=== PATIENT | female | born 1990 | race Caucasian/White ===

== ENCOUNTER 2020-04-18 20:53 | Inpatient (IN) ==
[2020-04-18] MEDS ORDERED: LACTATED RINGERS 1,000 ML IV ONE (21:17)
[2020-04-18] MEDS ORDERED: ONDANSETRON 4 MG/2 ML VIAL IV PRN (21:17)
[2020-04-18] MEDS ORDERED: LACTATED RINGERS 1,000 ML IV SCH (21:30)
[2020-04-18 21:41] LABS: Basophils % 0.2 % (0.0-0.8); Eosinophils # 0.1 10*3/uL (0.0-0.87); Hematocrit 36.3 VOL% (35.7-47.0); Hemoglobin 12.1 GM/DL (12.0-16.0); Immature Granulocytes % 0.6 %; Immature Granulocytes Absolute 0.07 #; Lymphocytes % 27.9 % (21.3-54.2); Mean Corpuscular HGB Conc 33.3 GM/DL (32-36); Mean Corpuscular Volume 99.5 FL (87-102); Mean Platelet Volume 13.3 FL (9.6-12.0); Neutrophils % 63.3 % (38.7-73.9); Platelet Count 181 T/CUMM (130-400); Red Blood Count 3.65 MC/CUMM (3.8-5.5); Red Cell Distribution Width 13.3 % (9.3-17.3); White Blood Count 10.8 T/CUMM (4-12)
[2020-04-18 21:58] LABS: Alanine Aminotransferase 24 U/L (13-56); Albumin 2.6 G/DL (3.4-5.0); Alkaline Phosphatase 119 U/L (45-117); Aspartate Amino Transferase 18 U/L (0-37); Bilirubin,Total < 0.39 MG/DL (0.2-1.0); Blood Urea Nitrogen 8 MG/DL (7-18); Calcium 9.2 MG/DL (8.5-10.1); Estimated Glom Filtration Rate 120 ML/MIN; Glucose 90 MG/DL (74-106); Osmolality,Calculated 270.8 MOS/KG (273-304); Total Protein 6.7 G/DL (6.4-8.3)
[2020-04-18 22:00] LABS: Eosinophils 2 % (0-10); Lymphocytes 22 % (20-55); Platelet Estimate Adequate; Segmented Neutrophils 67 % (50-85); Total Cells Counted 100
[2020-04-19] MEDS ORDERED: ceFAZolin 2,000 MG in PREMIX 1 EACH IV ONE (00:30)
[2020-04-19] MEDS ORDERED: BUTORPHANOL 1 MG/ML VIAL IV PRN (12:34)
[2020-04-19] MEDS ORDERED: BUTORPHANOL 2 MG/ML VIAL IV PRN (12:34)
[2020-04-19] MEDS ORDERED: LACTATED RINGERS 1,000 ML IV ONE (14:13)
[2020-04-19] MEDS ORDERED: ePHEDrine 50 MG/ML VIAL IV PRN (14:13)
[2020-04-19] MEDS ORDERED: ONDANSETRON 4 MG/2 ML VIAL IV ONE (14:13)
[2020-04-19] MEDS ORDERED: FAMOTIDINE 20 MG/2 ML VIAL IV ONE (14:13)
[2020-04-19] MEDS ORDERED: NALOXONE 0.4 MG/ML VIAL IV PRN (14:13)
[2020-04-19] MEDS ORDERED: CITRIC ACID/SODIUM CITRATE 30 ML UDCUP PO ONE (14:13)
[2020-04-19] MEDS ORDERED: diphenhydrAMINE 50 MG/1 ML VIAL IV PRN ×2 (14:13)
[2020-04-19] MEDS ORDERED: hydrOXYzine HCL 25 MG/1 ML VIAL IM PRN (14:13)
[2020-04-19] MEDS ORDERED: PROMETHAZINE 25 MG/1 ML VIAL IM ONE (14:13)
[2020-04-19] MEDS ORDERED: OXYTOCIN 20 UNIT in SODIUM CHLORIDE 0.9% 1,000 ML IV PRN (14:23)
[2020-04-19] MEDS ORDERED: fentaNYL 2 MCG/ROPIV 0.2% EPID 100 ML EPIDURAL SCH (14:30)
[2020-04-19] MEDS ORDERED: LACTATED RINGERS 1,000 ML IV SCH (14:30)
[2020-04-19] MEDS ORDERED: OXYTOCIN/LR 20 UNIT/1,000 ML BAG IV ONE ×3 (14:31→21:14)
[2020-04-19 17:38] LABS: Apearance,Urine CLEAR (Clear); Bilirubin,Urine Negative (Negative); Blood, Urine Negative (Negative); Glucose,Urine (UA) >=500 mg/dL (Negative); Hyaline Casts,Urine 1 /LPF (0-3); Ketones,Urine 5 mg/dL (Negative); Nitrite,Urine Negative (Negative); Protein,Urine Negative; RBC,Urine <1 /HPF (0-4); Urine Color Yellow (Yellow); Urine Specific Gravity 1.011 (1.001-1.035); Urine Urobilinogen < 2.0 EU/DL (0.2-1.0); WBC,Urine 1 /HPF (0-6)
[2020-04-19] MEDS ORDERED: SODIUM CHLORIDE 0.9% 0 ML IV ONE (17:38)
[2020-04-19] MEDS ORDERED: miSOPROStoL 200 MCG TABLET ONE (17:38)
[2020-04-19] MEDS ORDERED: TRANEXAMIC ACID 1,000 MG/10 ML VIAL ONE (17:38)
[2020-04-19] MEDS ORDERED: LIDOCAINE 1% 50 ML VIAL ONE (17:38)
[2020-04-19] MEDS ORDERED: CARBOPROST TROMETHAMINE 250 MCG/ML AMP IM ONE (17:39)
[2020-04-19] MEDS ORDERED: TERBUTALINE 1 MG/1 ML VIAL SUBCUT ONE (20:00)
[2020-04-19] MEDS ORDERED: TERBUTALINE 1 MG/1 ML VIAL ONE (20:03)
[2020-04-19] MEDS ORDERED: LIDOCAINE MPF 2% /EPI 20 ML VIAL ONE (20:16)
[2020-04-19] MEDS ORDERED: miSOPROStoL 200 MCG TABLET VAG ONE (20:28)
[2020-04-19] MEDS ORDERED: RHO(D) IMMUNE GLOBULIN 300 MCG SYRINGE IM ONE (21:14)
[2020-04-19] MEDS ORDERED: LANOLIN 50% CREAM 0.3 OZ TUBE TOP PRN (21:14)
[2020-04-19] MEDS ORDERED: BISACODYL 10 MG SUPP RECTAL PRN (21:14)
[2020-04-19] MEDS ORDERED: ONDANSETRON 4 MG/2 ML VIAL IV PRN (21:14)
[2020-04-19] MEDS ORDERED: MEASLES/MUMPS/RUBELLA VACCINE 0.5 ML VIAL SUBCUT ONE (21:14)
[2020-04-19] MEDS ORDERED: HYDROCORTISONE 2.5% RECTAL CREAM 30 GM TUBE TOP PRN (21:14)
[2020-04-19] MEDS ORDERED: WITCH HAZEL PADS 100/JAR TOP PRN (21:14)
[2020-04-19] MEDS ORDERED: DIPH/TET/ACEL PERT BOOSTER VACCINE 0.5 ML VIAL IM ONE (21:14)
[2020-04-19] MEDS ORDERED: ACETAMINOPHEN 325 MG TABLET PO PRN (21:14)
[2020-04-19] MEDS ORDERED: BENZOCAINE 20%/MENTHOL 0.5% SPRAY 56 GM CAN TOP PRN (21:14)
[2020-04-19] MEDS ORDERED: oxyCODONE/ACETAMINOPHEN 5-325 MG TABLET PO PRN ×2 (21:14)
[2020-04-19] MEDS ORDERED: propofoL 200 MG/20 ML VIAL IV ONE (21:32)
[2020-04-19] MEDS ORDERED: LIDOCAINE 2% 5 ML VIAL ONE (21:33)
[2020-04-19] MEDS ORDERED: ONDANSETRON 4 MG/2 ML VIAL ONE (21:33)
[2020-04-19] MEDS ORDERED: PHENYLEPHRINE 1 MG/10 ML SYRINGE IV ONE (21:33)
[2020-04-19] MEDS ORDERED: MORPHINE 10 MG/10 ML VIAL ONE (21:40)
[2020-04-19] MEDS ORDERED: OXYTOCIN 20 UNIT in SODIUM CHLORIDE 0.9% 1,000 ML IV ONE (22:05)
[2020-04-19] MEDS: IBUPROFEN 800 MG TABLET PO PRN (23:24)
[2020-04-20 03:19] LABS: Basophils % 0.1 % (0.0-0.8); Hematocrit 32.1 VOL% (35.7-47.0); Hemoglobin 10.7 GM/DL (12.0-16.0); Immature Granulocytes % 0.6 %; Immature Granulocytes Absolute 0.11 #; Lymphocytes # 2.2 10*3/uL (1.4-4.0); Lymphocytes % 11.8 % (21.3-54.2); Mean Corpuscular HGB Conc 33.3 GM/DL (32-36); Mean Corpuscular Volume 100.3 FL (87-102); Mean Platelet Volume 13.4 FL (9.6-12.0); Monocytes % 6.5 % (1.7-12.7); Platelet Count 147 T/CUMM (130-400); Red Cell Distribution Width 13.4 % (9.3-17.3); White Blood Count 18.3 T/CUMM (4-12)
[2020-04-20 05:18] LABS: Hypochromasia 1+; Platelet Estimate Adequate
[2020-04-20] MEDS: ceFAZolin 1,000 MG in SYRINGE 1 EACH IV SCH ×2 (06:37→12:35)
[2020-04-20] MEDS: IBUPROFEN 800 MG TABLET PO PRN ×2 (07:45→20:14)
[2020-04-20] MEDS: LABETALOL 100 MG TABLET PO SCH ×2 (09:55→20:14)
[2020-04-20] MEDS: DOCUSATE SODIUM 100 MG CAPSULE PO SCH ×2 (09:55→20:15)
[2020-04-20] MEDS ORDERED: SIMETHICONE CHEW 80 MG TABLET PO PRN (18:58)
[2020-04-20] MEDS: MAGNESIUM HYDROXIDE SUSP 30 ML UDCUP PO PRN (20:15)
[2020-04-21] MEDS: IBUPROFEN 800 MG TABLET PO PRN (06:23)
[2020-04-21 09:18] VITALS: BP 139/90
[2020-04-21] MEDS: MAGNESIUM HYDROXIDE SUSP 30 ML UDCUP PO PRN (09:52)
[2020-04-21] MEDS: LABETALOL 100 MG TABLET PO SCH (09:52)
[2020-04-21] MEDS: DOCUSATE SODIUM 100 MG CAPSULE PO SCH (09:52)
== END 2020-04-21 12:30 | disposition home or self-care (01) | DRG 788 ==
LOC: N.LDOUT 20:53 → N.LD 20:58 → N.OB 04-20 00:07
PROVIDERS: ADMIT Specialist; ATTEND Specialist
PROC: LDCSECT (ICD-10-PCS; 2020-04-19 20:10)